=== PATIENT | female | born 1940 | race Caucasian/White ===

== ENCOUNTER 2018-10-26 14:22 | Emergency (ER) | payer MEDICARE ==
--- NOTE | 2018-10-26 14:44 | EDM.PDOC ---
ED HPI GENERAL MEDICAL PROBLEM - General Chief Complaint: General Stated Complaint: SOB Time Seen by Provider: 10/26/18 14:22 Source of Information: Reports: Patient, Family, RN History Limitations: Reports: No Limitations - History of Present Illness INITIAL COMMENTS - FREE TEXT/NARRATIVE: 78 yr female presents with weakness, shortness of breath, and some abdominal pain and some loose stools. States she does have regular checks for INR and was told to have her Hgb checked. She had knee surgery about 3 weeks ago. She did go to PT for oupt PT and now has been doing the exercises at home. Headache Pain Score (Numeric/FACES): 8 - Related Data Allergies Allergy/AdvReac Type Severity Reaction Status Date / Time codeine Allergy Nausea and Verified 10/26/18 15:00 Vomiting lisinopril Allergy Cough Verified 10/26/18 15:00 meperidine HCl [From Demerol] Allergy Swelling Verified 10/26/18 15:00 morphine Allergy Swelling Verified 10/26/18 15:00 narcotics Allergy Nausea and Uncoded 04/02/13 17:03 Vomiting Home Meds: Home Meds Bisacodyl [Dulcolax] 5 mg PO DAILY 01/12/15 [History] Calcium Carb & Citrate/Vit D3 [Citracal + D ER] 1 tab PO DAILY 01/12/15 [History ] Metoprolol Tartrate 12.5 mg PO DAILY 01/12/15 [History] Mirtazapine 7.5 tab PO BEDTIME 01/12/15 [History] Omeprazole [Prilosec] 20 mg PO DAILY 01/12/15 [History] Vitamin E 100 units PO DAILY 01/12/15 [History] amLODIPine Besylate [Amlodipine Besylate] 5 mg PO DAILY 01/12/15 [History] Acetaminophen/Caffeine [Excedrin Tension Headache] 1 tab PO Q6HR 06/05/16 [ History] Cyanocobalamin (Vitamin B12) [Vitamin B12] 1,200 mcg PO DAILY 06/05/16 [History] Escitalopram [Lexapro] 10 mg PO DAILY 06/05/16 [History] Losartan [Cozaar] 25 mg PO DAILY 06/05/16 [History] Past Medical History HEENT History: Reports: Head Other HEENT History: hx of benign positional vertigo in the past with releif with benadryl Neurological History: Reports: Headaches, Chronic, Vertigo Psychiatric History: Reports: None, Anxiety, Depression Oncologic (Cancer) History: Reports: Breast - Past Surgical History Other Musculoskeletal Surgeries/Procedures:: 1982: disectomy cervical spine ED ROS GENERAL - Review of Systems Review Of Systems: See Below Constitutional: Reports: No Symptoms HEENT: Reports: Glasses Respiratory: Reports: Shortness of Breath Cardiovascular: Reports: No Symptoms GI/Abdominal: Reports: Abdominal Pain, Diarrhea, Nausea. Denies: Hematochezia, Melena, Vomiting : Reports: No Symptoms Musculoskeletal: Reports: Other (some knee pain, but taking Tylenol and not too bad.) Skin: Reports: Bruising (right lower leg after surgery.) Neurological: Reports: No Symptoms Psychiatric: Reports: No Symptoms Hematologic/Lymphatic: Reports: No Symptoms ED EXAM, GENERAL - Physical Exam Exam: See Below Exam Limited By: No Limitations General Appearance: Alert, No Apparent Distress Nose: Normal Inspection Throat/Mouth: Normal Inspection Head: Atraumatic, Normocephalic Neck: Normal Inspection, Supple, Non-Tender Respiratory/Chest: Lungs Clear, Normal Breath Sounds Cardiovascular: Normal Peripheral Pulses, Regular Rate, Rhythm, No Edema Peripheral Pulses: 2+: Dorsalis Pedis (L), Dorsalis Pedis (R) GI/Abdominal: Normal Bowel Sounds, Soft, No Distention, Tender Back Exam: Normal Inspection, Full Range of Motion Psychiatric: Normal Affect, Normal Mood Skin Exam: Warm, Dry, Normal Color Course - Vital Signs Last Recorded V/S: Orthostatic Blood Pressure [ 73/44 Standing] Orthostatic Blood Pressure [ 90/55 Sitting] Orthostatic Blood Pressure [ 108/56 Supine] - Orders/Labs/Meds Orders: Active Orders 24 hr Category Date Time Status EKG Documentation Completion [RC] ASDIRECTED Care 10/26/18 15:37 Active Chest 2V [CR] Stat Exams 10/26/18 15:36 Taken EKG 12 Lead [EK] Routine Ther 10/26/18 15:37 Ordered Labs: Laboratory Tests 10/26/18 10/26/18 10/26/18 Range/Units 14:36 14:36 14:36 WBC 7.5 (4.0-11.0) K/uL RBC 3.48 L (3.80-5.80) M/uL Hgb 10.1 L (11.5-16.5) g/dL Hct 31.8 L (37.0-47.0) % MCV 91 (76-96) fL MCH 29.0 (27.0-32.0) pg MCHC 31.8 (31.0-35.0) g/dL RDW 13.8 (11.0-16.0) % Plt Count 520 H D (150-500) K/uL MPV 9.2 (6.0-10.0) fL Neut % (Auto) 56.8 (45.0-70.0) % Lymph % (Auto) 28.6 (20.0-40.0) % Wilkes % (Auto) 6.8 (3.0-10.0) % Eos % (Auto) 6.3 H (1.0-5.0) % Baso % (Auto) 1.5 H (0.0-0.5) % Neut # (Auto) 4.27 (2.00-7.50) K/uL Lymph # (Auto) 2.15 (1.50-4.00) K/uL Wilkes # (Auto) 0.51 (0.20-0.80) K/uL Eos # (Auto) 0.47 H (0.04-0.40) K/uL Baso # (Auto) 0.11 H (0.02-0.10) K/uL PT 18.0 H D (9.0-11.5) sec INR 1.9 D (1.0-3.5) Sodium 138 (136-145) mmol/L Potassium 4.6 (3.5-5.1) mmol/L Chloride 103 (98-107) mmol/L Carbon Dioxide 26.6 (21.0-32.0) mmol/L Anion Gap 13.0 (5.0-15.0) mmol/L BUN 25 D (8-26) mg/dL Creatinine 2.12 H D (0.55-1.02) mg/dL Est Cr Clr Drug Dosing TNP Estimated GFR (MDRD) 23 L (>60) MLS/MIN BUN/Creatinine Ratio 11.8 (6-25) Glucose 124 H D (74-100) mg/dL Lactic Acid (0.90-1.70) mmol/L Calcium 9.6 (8.5-10.1) mg/dL Total Bilirubin 0.2 (0.0-1.0) mg/dL AST 27 (15-37) U/L ALT 23 (12-78) U/L Alkaline Phosphatase 71 (46-116) U/L Total Protein 7.1 (6.4-8.2) g/dL Albumin 3.0 L (3.4-5.0) g/dL Globulin 4.1 (2.2-4.2) g/dL Albumin/Globulin Ratio 0.7 L (0.8-2.0) TSH, Ultra Sensitive (0.358-3.740) uIU/mL Urine Color Urine Appearance (CLEAR) Urine pH (5.0-8.0) Ur Specific Leggett (1.003-1.030) Urine Protein (NEGATIVE) mg/dL Urine Glucose (UA) (NEGATIVE) mg/dL Urine Ketones (NEGATIVE) mg/dL Urine Occult Blood (NEGATIVE) Urine Nitrite (NEGATIVE) Urine Bilirubin (NEGATIVE) Urine Urobilinogen (0.2-1.0) E.U./dL Ur Leukocyte Esterase (NEGATIVE) 10/26/18 10/26/18 10/26/18 Range/Units 14:37 14:37 14:37 WBC (4.0-11.0) K/uL RBC (3.80-5.80) M/uL Hgb (11.5-16.5) g/dL Hct (37.0-47.0) % MCV (76-96) fL MCH (27.0-32.0) pg MCHC (31.0-35.0) g/dL RDW (11.0-16.0) % Plt Count (150-500) K/uL MPV (6.0-10.0) fL Neut % (Auto) (45.0-70.0) % Lymph % (Auto) (20.0-40.0) % Wilkes % (Auto) (3.0-10.0) % Eos % (Auto) (1.0-5.0) % Baso % (Auto) (0.0-0.5) % Neut # (Auto) (2.00-7.50) K/uL Lymph # (Auto) (1.50-4.00) K/uL Wilkes # (Auto) (0.20-0.80) K/uL Eos # (Auto) (0.04-0.40) K/uL Baso # (Auto) (0.02-0.10) K/uL PT (9.0-11.5) sec INR (1.0-3.5) Sodium (136-145) mmol/L Potassium (3.5-5.1) mmol/L Chloride (98-107) mmol/L Carbon Dioxide (21.0-32.0) mmol/L Anion Gap (5.0-15.0) mmol/L BUN (8-26) mg/dL Creatinine (0.55-1.02) mg/dL Est Cr Clr Drug Dosing Estimated GFR (MDRD) (>60) MLS/MIN BUN/Creatinine Ratio (6-25) Glucose (74-100) mg/dL Lactic Acid 1.81 H (0.90-1.70) mmol/L Calcium (8.5-10.1) mg/dL Total Bilirubin (0.0-1.0) mg/dL AST (15-37) U/L ALT (12-78) U/L Alkaline Phosphatase (46-116) U/L Total Protein (6.4-8.2) g/dL Albumin (3.4-5.0) g/dL Globulin (2.2-4.2) g/dL Albumin/Globulin Ratio (0.8-2.0) TSH, Ultra Sensitive 3.086 D (0.358-3.740) uIU/mL Urine Color Yellow Urine Appearance Clear (CLEAR) Urine pH 8.5 H (5.0-8.0) Ur Specific Leggett 1.015 (1.003-1.030) Urine Protein Negative (NEGATIVE) mg/dL Urine Glucose (UA) Negative (NEGATIVE) mg/dL Urine Ketones Negative (NEGATIVE) mg/dL Urine Occult Blood Negative (NEGATIVE) Urine Nitrite Negative (NEGATIVE) Urine Bilirubin Negative (NEGATIVE) Urine Urobilinogen 0.2 (0.2-1.0) E.U./dL Ur Leukocyte Esterase Negative (NEGATIVE) Meds: Medications Discontinued Medications Generic Name Dose Route Start Last Admin Trade Name Freq PRN Reason Stop Dose Admin Acetaminophen Confirm 10/26/18 15:25 Tylenol Administered 10/26/18 15:26 Dose 325 mg .ROUTE .STK-MED ONE Sodium Chloride 500 mls @ 999 mls/hr 10/26/18 15:37 Normal Saline IV 10/26/18 16:07 .BOLUS ONE - Re-Assessments/Exams Free Text/Narrative Re-Assessment/Exam: 10/26/18 16:16 Reviewed lab results, Chest x-ray and EKG with pt and . Anemia noted, dehydration and renal insufficiency. Recommend to take Iron daily after best meal of the day and no calcium at same meal. IV fluids of 1 liter given and recommend to continue with increase water at home. Recheck H/H next week with INR. Orthostatid hypotension noted and bradycardia. Improved after fluids. May need her medication adjusted. She does have regular appointments with internal medicine. RTC or ER if symptoms persist or worsen. Departure - Departure Time of Disposition: 16:44 Disposition: Home, Self-Care 01 Condition: Good Clinical Impression: Dehydration, Anemia, Renal insufficiency, Orthostatic hypotension - Discharge Information *PRESCRIPTION DRUG MONITORING PROGRAM REVIEWED*: Not Applicable *COPY OF PRESCRIPTION DRUG MONITORING REPORT IN PATIENT DARION: Not Applicable ( Iron tablets daily with food) Instructions: Anemia Referrals: PCP,None [Primary Care Provider] - Forms: ED Department Discharge Additional Instructions: Follow up next week for Hemoglobin check. - My Orders Last 24 Hours: My Active Orders 10/26/18 15:36 Chest 2V [CR] Stat 10/26/18 15:37 EKG Documentation Completion [RC] ASDIRECTED EKG 12 Lead [EK] Routine - Assessment/Plan Last 24 Hours: My Active Orders 10/26/18 15:36 Chest 2V [CR] Stat 10/26/18 15:37 EKG Documentation Completion [RC] ASDIRECTED EKG 12 Lead [EK] Routine Plan: Anemia noted, dehydration and renal insufficiency. Recommend to take Iron daily after best meal of the day and no calcium at same meal. IV fluids of 1 liter given and recommend to continue with increase water at home. Recheck H/H next week with INR. Orthostatid hypotension noted and bradycardia. Improved after fluids. May need her medication adjusted. She does have regular appointments with internal medicine. RTC or ER if symptoms persist or worsen.
[2018-10-26] MEDS ORDERED: Acetaminophen 325 MG Tab ONE ×2 (15:00→15:25)
[2018-10-26] MEDS ORDERED: Sodium Chloride 0.9% 500 ML IV ONE (15:37)
--- NOTE | 2018-10-26 17:32 | CR ---
Date of Service: 10/26/18 Clinical Data: shortness of breath PA AND LATERAL CHEST: No priors. The heart size is normal. The aorta is ectatic. The lungs are hyperexpanded, but clear. No pneumothorax. No pleural effusions. There are surgical clips in the right axilla. 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 No other significant findings. [id number] [facility]
== END 2018-10-26 16:43 | disposition home or self-care (01) ==
LOC: LB.ED 14:22
DX: I95.1 Orthostatic hypotension (principal); N28.9 Disorder of kidney and ureter, unspecified; D64.9 Anemia, unspecified; E86.0 Dehydration; F41.9 Anxiety disorder, unspecified; F32.9 Major depressive disorder, single episode, unspecified; Z88.5 Allergy status to narcotic agent; Z88.8 Allergy status to other drugs, medicaments and biological substances; Z79.899 Other long term (current) drug therapy
CPT/HCPCS: 36415; 71046; 80053; 81003; 83605; 84443; 85025; 85610; 93005; 99285-25; A9270-GY; J7030

== ENCOUNTER 2021-04-30 08:34 | Day surgery (SDC) | payer MEDICARE ==
[~2021-04-30 08:34] MED LIST: Acetaminophen/HYDROcodone 325-5 MG Tab PO PRN; Lactated Ringers 1,000 ML IV SCH; ceFAZolin 1 GM in Sodium Chloride 0.9% 50 ML IV ONE
[2021-04-30] MEDS ORDERED: ceFAZolin 1 GM Vial ONE (10:00)
[2021-04-30] MEDS ORDERED: Midazolam 1 MG/ML 2 ML SDV ONE (10:00)
[2021-04-30] MEDS ORDERED: fentaNYL 100 MCG/2 ML SDV ONE (10:00)
[2021-04-30] MEDS ORDERED: Ondansetron 4 MG/2 ML SDV ONE (10:00)
[2021-04-30 11:12] VITALS: BP 130/68; PULSE 56
== END 2021-04-30 11:15 | disposition home or self-care (01) ==
LOC: LB.SDS 08:34
PROVIDERS: ATTEND Orthopaedic Surgery
DX: G56.01 Carpal tunnel syndrome, right upper limb (principal); I10 Essential (primary) hypertension; F32.A Depression, unspecified; Z20.822 Contact with and (suspected) exposure to COVID-19; Z79.899 Other long term (current) drug therapy
CPT/HCPCS: 64721; J0690; J2250; J2405; J3010; J7120

== ENCOUNTER 2021-07-14 12:42 | Emergency (ER) | payer MEDICARE ==
[2021-07-14] MEDS: fentaNYL 100 MCG/2 ML SDV IM ONE (13:10)
[2021-07-14] MEDS: hydrOXYzine HCl 50 MG/ML SDV IM ONE (13:20)
[2021-07-14] MEDS ORDERED: methylPREDNISolone Sodium Succinate 40 MG/1 ML SDV ONE (14:52)
[2021-07-14] MEDS: methylPREDNISolone Sodium Succinate 40 MG/1 ML SDV IM ONE (14:52)
== END 2021-07-14 14:55 | disposition home or self-care (01) ==
LOC: LB.ED 12:42
DX: S32.592A Other specified fracture of left pubis, initial encounter for closed fracture (principal); M54.42 Lumbago with sciatica, left side; M43.16 Spondylolisthesis, lumbar region; I10 Essential (primary) hypertension; Z88.5 Allergy status to narcotic agent; Z88.6 Allergy status to analgesic agent; Z88.8 Allergy status to other drugs, medicaments and biological substances; Z79.899 Other long term (current) drug therapy
CPT/HCPCS: 36415; 72192; 80048; 85025; 96372; 99284; J2920; J3010; J3410

== ENCOUNTER 2021-10-01 10:25 | Emergency (ER) | payer MEDICARE ==
[2021-10-01] MEDS: Sodium Chloride 0.9% 1,000 ML IV ONE ×2 (12:25→14:53)
[2021-10-01 14:30] VITALS: BP 114/77; PULSE 60
== END 2021-10-01 14:45 | disposition home or self-care (01) ==
LOC: LB.ED 10:25
DX: E86.0 Dehydration (principal); R00.1 Bradycardia, unspecified; I10 Essential (primary) hypertension; Z88.5 Allergy status to narcotic agent; Z88.6 Allergy status to analgesic agent; Z88.8 Allergy status to other drugs, medicaments and biological substances; Z79.899 Other long term (current) drug therapy
CPT/HCPCS: 36415; 74176; 80053; 81001; 83690; 85025; 93005; 96360; 96361; 99284; J7030; 93010; 99282

== ENCOUNTER 2023-03-04 14:09 | Emergency (ER) | payer MEDICARE ==
[2023-03-04 14:23] VITALS: BP 125/73; PULSE 68
[2023-03-04 16:57] LABS: APPEARANCE,URINE CLEAR (CLEAR); BILIRUBIN,URINE NEGATIVE (NEGATIVE); COLOR,URINE YELLOW; GLUCOSE,URINE NEGATIVE (NEGATIVE); KETONES,URINE NEGATIVE (NEGATIVE); LEUKOCYTE ESTERASE,URINE TRACE (NEGATIVE); NITRITE,URINE NEGATIVE (NEGATIVE); OCCULT BLOOD,URINE NEGATIVE (NEGATIVE); PH,URINE 5.5 (5.0-8.0); PROTEIN,URINE TRACE mg/dL (NEGATIVE); UROBILINOGEN,URINE 0.2 E.U./dL (0.2-1.0)
[2023-03-04 17:02] LABS: RBC,URINE 0-5 /HPF; SQUAMOUS EPITHELIAL CELLS,UR OCCASIONAL /HPF
[2023-03-04] MEDS ORDERED: Sulfamethoxazole/Trimethoprim 800-160 MG Tab PO ONE (17:06)
== END 2023-03-04 17:15 | disposition home or self-care (01) ==
LOC: LB.ED 14:09
DX: M25.531 Pain in right wrist (principal); Z88.5 Allergy status to narcotic agent; Z88.8 Allergy status to other drugs, medicaments and biological substances; Z79.899 Other long term (current) drug therapy
CPT/HCPCS: 73110-RT; 81001; 87086; 99283; A9270-GY

== ENCOUNTER 2023-04-08 11:22 | Emergency (ER) | payer MEDICARE ==
[2023-04-08] MEDS ORDERED: Naloxone 2 MG/2 ML Syringe IVPUSH PRN (11:23)
[2023-04-08] MEDS: HYDROmorphone 2 MG/ML Syringe IVPUSH ONE ×3 (11:27→17:12)
[2023-04-08] MEDS: Ondansetron 4 MG/2 ML SDV IVPUSH ONE ×2 (11:28→18:00)
[2023-04-08] MEDS ORDERED: Sodium Chloride 0.9% 10 ML Syringe FLUSH PRN (13:39)
[2023-04-08 15:43] VITALS: PULSE 61
[2023-04-08] MEDS ORDERED: Ondansetron 4 MG/2 ML SDV ONE (17:56)
[2023-04-08 18:15] VITALS: BP 134/70
== END 2023-04-08 18:25 ==
LOC: LB.ED 11:22
DX: S72.391A Other fracture of shaft of right femur, initial encounter for closed fracture (principal); I10 Essential (primary) hypertension; Z79.899 Other long term (current) drug therapy; Z88.5 Allergy status to narcotic agent; Z88.6 Allergy status to analgesic agent; Z88.8 Allergy status to other drugs, medicaments and biological substances; W01.0XXA Fall on same level from slipping, tripping and stumbling without subsequent striking against object, initial encounter
CPT/HCPCS: 51702; 73502-RT; 73700-RT; 96374; 96375; 96376; 99285; 99285-25; A0425; A0429; J1170; J2405

== ENCOUNTER 2023-07-15 08:10 | Emergency (ER) | payer MEDICARE ==
[2023-07-15 08:36] VITALS: PULSE 67
[2023-07-15 11:40] VITALS: BP 154/79
== END 2023-07-15 10:55 ==
LOC: LB.ED 08:10
DX: S00.03XA Contusion of scalp, initial encounter (principal); I10 Essential (primary) hypertension; Z88.4 Allergy status to anesthetic agent; Z88.5 Allergy status to narcotic agent; Z88.8 Allergy status to other drugs, medicaments and biological substances; Z88.6 Allergy status to analgesic agent; Z86.19 Personal history of other infectious and parasitic diseases; Z79.899 Other long term (current) drug therapy; W18.12XA Fall from or off toilet with subsequent striking against object, initial encounter; Y93.89 Activity, other specified
CPT/HCPCS: 70450; 99283

== ENCOUNTER 2023-07-17 19:25 | Emergency (ER) | payer MEDICARE ==
[2023-07-17] MEDS: Ondansetron 4 MG/2 ML SDV IVPUSH ONE (19:48)
[2023-07-17] MEDS: HYDROmorphone 2 MG/ML Syringe IVPUSH ONE (19:50)
[2023-07-17] MEDS: fentaNYL 25 MCG/HR Transdermal Patch TRDERM SCH (21:30)
[2023-07-17 22:39] VITALS: BP 109/63; PULSE 62
== END 2023-07-17 22:10 ==
LOC: LB.ED 19:25
DX: M54.50 Low back pain, unspecified (principal); G89.29 Other chronic pain; I10 Essential (primary) hypertension; Z79.899 Other long term (current) drug therapy; Z79.01 Long term (current) use of anticoagulants; Z88.5 Allergy status to narcotic agent; Z88.6 Allergy status to analgesic agent; Z88.8 Allergy status to other drugs, medicaments and biological substances
CPT/HCPCS: 72100; 73521; 96374; 96375; 99283; A9270; J1170; J2405

== ENCOUNTER 2023-07-20 11:11 | Emergency (ER) | payer MEDICARE ==
[2023-07-20 12:00] VITALS: BP 102/64; PULSE 71
[2023-07-20] MEDS ORDERED: fentaNYL 25 MCG/HR Transdermal Patch ONE (12:00)
== END 2023-07-20 13:50 ==
LOC: LB.ED 11:11
DX: S32.10XD Unspecified fracture of sacrum, subsequent encounter for fracture with routine healing (principal); I10 Essential (primary) hypertension; Z88.8 Allergy status to other drugs, medicaments and biological substances; Z88.5 Allergy status to narcotic agent; Z88.4 Allergy status to anesthetic agent; Z88.6 Allergy status to analgesic agent; Z79.01 Long term (current) use of anticoagulants; Z79.899 Other long term (current) drug therapy; Z86.19 Personal history of other infectious and parasitic diseases; W19.XXXD Unspecified fall, subsequent encounter
CPT/HCPCS: 72131; 72192; 99283; A9270-GY

== ENCOUNTER 2023-07-22 14:18 | Inpatient (IN) | payer MEDICARE ==
[2023-07-22 15:22] LABS: APPEARANCE,URINE CLOUDY (CLEAR); BILIRUBIN,URINE NEGATIVE (NEGATIVE); COLOR,URINE YELLOW; GLUCOSE,URINE NEGATIVE (NEGATIVE); KETONES,URINE NEGATIVE (NEGATIVE); LEUKOCYTE ESTERASE,URINE SMALL (NEGATIVE); NITRITE,URINE NEGATIVE (NEGATIVE); OCCULT BLOOD,URINE TRACE-INTACT (NEGATIVE); PROTEIN,URINE NEGATIVE (NEGATIVE); UROBILINOGEN,URINE 0.2 E.U./dL (0.2-1.0)
[2023-07-22 15:26] LABS: RBC,URINE 0-5 /HPF; SQUAMOUS EPITHELIAL CELLS,UR FEW /HPF; WBC,URINE 30-40 /HPF
[2023-07-22] MEDS: Naloxone 2 MG/2 ML Syringe SUBCUT PRN (16:10)
[2023-07-22] MEDS: LORazepam 2 MG/ML SDV IM ONE (16:11)
[2023-07-22] MEDS ORDERED: Aluminum Hydroxide/Magnesium Hydroxide/Simethicone Susp 30 ML Cup PO PRN (16:14)
[2023-07-22] MEDS ORDERED: Non-Formulary Medication 1 Each (Sumatriptan Succinate [Imitrex] 100 MG Tablet) PO PRN (16:14)
[2023-07-22] MEDS: LORazepam 2 MG/ML SDV ONE (16:18)
[2023-07-22] MEDS: Naloxone 2 MG/2 ML Syringe ONE (16:18)
[2023-07-22] MEDS ORDERED: SUMAtriptan 25 MG Tab PO PRN (17:00)
[2023-07-22] MEDS: Apixaban 2.5 MG Tab PO SCH (19:24)
[2023-07-22] MEDS: Acetaminophen 500 MG Tab PO PRN (19:24)
[2023-07-22] MEDS: Escitalopram 20 MG Tab PO SCH (19:24)
[2023-07-22] MEDS: LORazepam 0.5 MG Tab PO SCH (19:28)
[2023-07-23] MEDS: Lidocaine 5% 700 MG Patch TOP SCH (07:38)
[2023-07-23] MEDS: Calcium Carbonate/Vitamin D3 1500 MG-400 Units Tab PO SCH (07:38)
[2023-07-23] MEDS: Hydrochlorothiazide 25 MG Tab PO SCH (07:38)
[2023-07-23] MEDS: Polyethylene Glycol 3350 Powder 17 GM Packet PO SCH (07:39)
[2023-07-23] MEDS: Omeprazole 20 MG Cap.CR PO SCH (07:39)
[2023-07-23] MEDS: Cyanocobalamin (Vitamin B12) 1,000 MCG Tab PO SCH (07:39)
[2023-07-23] MEDS: buPROPion 300 MG Tab.ER PO SCH (07:39)
[2023-07-23] MEDS: Metoprolol Succinate 25 MG Tab.ER PO SCH (07:39)
[2023-07-23] MEDS ORDERED: VIT D3 PO SCH (08:00)
[2023-07-23] MEDS ORDERED: [UNRECOGNIZED DRUG - OTHER] PO SCH (08:00)
[2023-07-23] MEDS ORDERED: LIDOCAINE TP SCH (08:00)
[2023-07-23] MEDS ORDERED: CALCIUM CARB CITRATE PO SCH (08:00)
[2023-07-23] MEDS ORDERED: Lidocaine 5% 700 MG Patch TRDERM SCH (08:00)
[2023-07-23 08:36] LABS: BASOPHILS ABSOLUTE AUTO 0.04 K/uL (0.02-0.10); BASOPHILS PERCENT AUTO 0.5 % (0.0-0.5); EOSINOPHILS ABSOLUTE AUTO 0.08 K/uL (0.04-0.40); HEMATOCRIT 32.2 % (37.0-47.0); HEMOGLOBIN 10.1 g/dL (11.5-16.5); LYMPHOCYTES ABSOLUTE AUTO 1.38 K/uL (1.50-4.00); LYMPHOCYTES PERCENT AUTO 17.5 % (20.0-40.0); MEAN CORPUSCULAR HEMOGLOBIN 28.6 pg (27.0-32.0); MEAN CORPUSCULAR HGB CONC 31.4 g/dL (31.0-35.0); MEAN CORPUSCULAR VOLUME 91 fL (76-96); MEAN PLATELET VOLUME 9.2 fL (6.0-10.0); MONOCYTES ABSOLUTE AUTO 0.57 K/uL (0.20-0.80); MONOCYTES PERCENT AUTO 7.2 % (3.0-10.0); NEUTROPHILS ABSOLUTE AUTO 5.81 K/uL (2.00-7.50); NEUTROPHILS PERCENT AUTO 73.8 % (45.0-70.0); PLATELET COUNT,PLT 335 K/uL (150-500); RED BLOOD CELL COUNT 3.53 M/uL (3.80-5.80); RED CELL DISTRIBUTION WIDTH 14.5 % (11.0-16.0); WHITE BLOOD CELL COUNT,WBC 7.9 K/uL (4.0-11.0)
[2023-07-23 08:49] LABS: A/G RATIO 0.7 (0.8-2.0); ALANINE AMINOTRANSFERASE,ALT 25 U/L (12-78); ALBUMIN 2.9 g/dL (3.4-5.0); ALKALINE PHOSPHATASE 122 U/L (46-116); ANION GAP 19.6 mmol/L (5.0-15.0); ASPARTATE AMNIOTRANSFERASE,AST 39 U/L (15-37); BILIRUBIN TOTAL 0.6 mg/dL (0.0-1.0); BLOOD UREA NITROGEN,BUN 34 mg/dL (8-26); BUN/CREATININE RATIO 22.8 (6-25); CALCIUM 9.2 mg/dL (8.5-10.1); CARBON DIOXIDE,CO2 22.1 mmol/L (21.0-32.0); CHLORIDE,CL 100 mmol/L (98-107); CREATININE 1.49 mg/dL (0.55-1.02); ESTIMATED GFR 35 mL/min (>60); GLUCOSE RANDOM 70 mg/dL (74-100); POTASSIUM,K 3.7 mmol/L (3.5-5.1); PROTEIN TOTAL,TP 6.8 g/dL (6.4-8.2); SODIUM,NA 138 mmol/L (136-145)
[2023-07-23] MEDS: Sodium Chloride 0.9% 1,000 ML IV ONE (09:34)
[2023-07-23] MEDS: Acetaminophen 500 MG Tab PO ONE (10:53)
[2023-07-23] MEDS: Acetaminophen 500 MG Tab PO SCH (14:09)
[2023-07-23] MEDS ORDERED: LORazepam 2 MG/ML SDV IM PRN (16:01)
[2023-07-23] MEDS: LORazepam 2 MG/ML SDV IVPUSH PRN (16:28)
[2023-07-24] MEDS: Metoprolol Tartrate 25 MG Tab PO SCH ×2 (09:24→19:28)
[2023-07-25] MEDS: Metoprolol Tartrate 50 MG Tab PO SCH (07:34)
[2023-07-25] MEDS: traMADol 50 MG Tab PO SCH (07:35)
[2023-07-25] MEDS: amLODIPine 5 MG Tab PO ONE (07:35)
[2023-07-25] MEDS: Sodium Chloride 0.9% 1,000 ML IV SCH (09:48)
[2023-07-25 10:03] LABS: A/G RATIO 0.7 (0.8-2.0); ALANINE AMINOTRANSFERASE,ALT 15 U/L (12-78); ALBUMIN 2.8 g/dL (3.4-5.0); ALKALINE PHOSPHATASE 126 U/L (46-116); ANION GAP 14.3 mmol/L (5.0-15.0); ASPARTATE AMNIOTRANSFERASE,AST 23 U/L (15-37); BILIRUBIN TOTAL 0.4 mg/dL (0.0-1.0); BLOOD UREA NITROGEN,BUN 25 mg/dL (8-26); BUN/CREATININE RATIO 18.9 (6-25); CALCIUM 9.2 mg/dL (8.5-10.1); CARBON DIOXIDE,CO2 24.9 mmol/L (21.0-32.0); CHLORIDE,CL 104 mmol/L (98-107); CREATININE 1.32 mg/dL (0.55-1.02); ESTIMATED GFR 41 mL/min (>60); GLUCOSE RANDOM 82 mg/dL (74-100); POTASSIUM,K 4.2 mmol/L (3.5-5.1); PROTEIN TOTAL,TP 6.8 g/dL (6.4-8.2); SODIUM,NA 139 mmol/L (136-145)
[2023-07-25] MEDS: Ondansetron 4 MG Tab.DIS PO PRN (10:34)
[2023-07-25] MEDS ORDERED: Non-Formulary Medication 1 Each SUBCUT SCH (11:15)
[2023-07-25] MEDS: GALCANEZUMAB 120 MG/ML SQ SCH (11:39)
[2023-07-25] MEDS: Acetaminophen 500 MG Tab ONE (16:24)
[2023-07-26 05:36] LABS: APPEARANCE,URINE CLEAR (CLEAR); BILIRUBIN,URINE NEGATIVE (NEGATIVE); COLOR,URINE YELLOW; GLUCOSE,URINE NEGATIVE (NEGATIVE); KETONES,URINE NEGATIVE (NEGATIVE); LEUKOCYTE ESTERASE,URINE SMALL (NEGATIVE); NITRITE,URINE NEGATIVE (NEGATIVE); OCCULT BLOOD,URINE NEGATIVE (NEGATIVE); PROTEIN,URINE NEGATIVE (NEGATIVE); UROBILINOGEN,URINE 0.2 E.U./dL (0.2-1.0)
[2023-07-26 05:39] LABS: BACTERIA,URINE FEW /HPF; RBC,URINE NOT SEEN /HPF
[2023-07-26] MEDS: amLODIPine 5 MG Tab PO SCH (08:15)
[2023-07-26] MEDS: LORazepam 2 MG/ML SDV IVPUSH PRN (15:21)
[2023-07-26] MEDS: ALPRAZolam 0.25 MG Tab PO PRN (18:38)
[2023-07-27] MEDS: amLODIPine 5 MG Tab PO ONE (11:08)
[2023-07-27] MEDS: amLODIPine 5 MG Tab ONE (11:08)
[2023-07-27] MEDS: Ibuprofen 400 MG Tab PO PRN (11:09)
[2023-07-27] MEDS: Acetaminophen/HYDROcodone 325-5 MG Tab PO PRN (12:03)
[2023-07-27] MEDS: Acetaminophen/HYDROcodone 325-5 MG Tab ONE (12:04)
[2023-07-28] MEDS: amLODIPine 5 MG Tab PO SCH (07:40)
[2023-07-28] MEDS: Acetaminophen/HYDROcodone 325-5 MG Tab PO PRN (12:45)
[2023-07-28] MEDS: Trolamine Salicylate/Aloe Vera 10% Crm 85 GM Tube TOP PRN (15:43)
[2023-07-28] MEDS: Ondansetron 4 MG/2 ML SDV IVPUSH ONE (16:55)
[2023-07-28] MEDS: HYDROmorphone 2 MG/ML Syringe IVPUSH ONE (17:01)
[2023-07-29] MEDS: HYDROmorphone 2 MG/ML Syringe IVPUSH ONE (05:53)
[2023-07-29] MEDS: HYDROmorphone 2 MG/ML Syringe ONE (07:35)
[2023-07-29 08:30] LABS: A/G RATIO 0.7 (0.8-2.0); ALANINE AMINOTRANSFERASE,ALT 11 U/L (12-78); ALBUMIN 2.3 g/dL (3.4-5.0); ALKALINE PHOSPHATASE 140 U/L (46-116); ANION GAP 13.6 mmol/L (5.0-15.0); ASPARTATE AMNIOTRANSFERASE,AST 15 U/L (15-37); BILIRUBIN TOTAL 0.3 mg/dL (0.0-1.0); CALCIUM 8.3 mg/dL (8.5-10.1); CARBON DIOXIDE,CO2 22.9 mmol/L (21.0-32.0); CHLORIDE,CL 108 mmol/L (98-107); CREATININE 1.21 mg/dL (0.55-1.02); ESTIMATED GFR 45 mL/min (>60); GLUCOSE RANDOM 87 mg/dL (74-100); POTASSIUM,K 3.5 mmol/L (3.5-5.1); PROTEIN TOTAL,TP 5.7 g/dL (6.4-8.2); SODIUM,NA 141 mmol/L (136-145)
[2023-07-29 09:56] LABS: BLOOD UREA NITROGEN,BUN 17 mg/dL (8-26)
[2023-07-29 11:03] LABS: BASOPHILS ABSOLUTE AUTO 0.03 K/uL (0.02-0.10); BASOPHILS PERCENT AUTO 0.4 % (0.0-0.5); EOSINOPHILS PERCENT AUTO 1.4 % (1.0-5.0); HEMATOCRIT 31.2 % (37.0-47.0); LYMPHOCYTES PERCENT AUTO 24.4 % (20.0-40.0); MEAN CORPUSCULAR HGB CONC 32.1 g/dL (31.0-35.0); MEAN CORPUSCULAR VOLUME 90 fL (76-96); MEAN PLATELET VOLUME 9.1 fL (6.0-10.0); MONOCYTES ABSOLUTE AUTO 0.52 K/uL (0.20-0.80); MONOCYTES PERCENT AUTO 7.5 % (3.0-10.0); NEUTROPHILS ABSOLUTE AUTO 4.61 K/uL (2.00-7.50); NEUTROPHILS PERCENT AUTO 66.3 % (45.0-70.0); PLATELET COUNT,PLT 333 K/uL (150-500); RED BLOOD CELL COUNT 3.45 M/uL (3.80-5.80); RED CELL DISTRIBUTION WIDTH 14.4 % (11.0-16.0)
[2023-07-29] MEDS ORDERED: Naloxone 2 MG/2 ML Syringe IVPUSH PRN (11:05)
[2023-07-29] MEDS: HYDROmorphone 2 MG/ML Syringe IVPUSH PRN (11:36)
[2023-07-30 08:46] LABS: BASOPHILS ABSOLUTE AUTO 0.03 K/uL (0.02-0.10); BASOPHILS PERCENT AUTO 0.4 % (0.0-0.5); EOSINOPHILS ABSOLUTE AUTO 0.14 K/uL (0.04-0.40); EOSINOPHILS PERCENT AUTO 1.8 % (1.0-5.0); HEMATOCRIT 30.1 % (37.0-47.0); HEMOGLOBIN 9.5 g/dL (11.5-16.5); LYMPHOCYTES ABSOLUTE AUTO 1.92 K/uL (1.50-4.00); LYMPHOCYTES PERCENT AUTO 24.2 % (20.0-40.0); MEAN CORPUSCULAR HGB CONC 31.6 g/dL (31.0-35.0); MEAN CORPUSCULAR VOLUME 92 fL (76-96); MONOCYTES ABSOLUTE AUTO 0.78 K/uL (0.20-0.80); MONOCYTES PERCENT AUTO 9.8 % (3.0-10.0); NEUTROPHILS ABSOLUTE AUTO 5.06 K/uL (2.00-7.50); NEUTROPHILS PERCENT AUTO 63.8 % (45.0-70.0); PLATELET COUNT,PLT 376 K/uL (150-500); RED BLOOD CELL COUNT 3.28 M/uL (3.80-5.80); RED CELL DISTRIBUTION WIDTH 14.8 % (11.0-16.0); WHITE BLOOD CELL COUNT,WBC 7.9 K/uL (4.0-11.0)
[2023-07-31 09:37] LABS: BASOPHILS ABSOLUTE AUTO 0.04 K/uL (0.02-0.10); BASOPHILS PERCENT AUTO 0.6 % (0.0-0.5); EOSINOPHILS ABSOLUTE AUTO 0.14 K/uL (0.04-0.40); EOSINOPHILS PERCENT AUTO 2.1 % (1.0-5.0); HEMATOCRIT 33.1 % (37.0-47.0); HEMOGLOBIN 10.4 g/dL (11.5-16.5); LYMPHOCYTES ABSOLUTE AUTO 1.58 K/uL (1.50-4.00); LYMPHOCYTES PERCENT AUTO 23.2 % (20.0-40.0); MEAN CORPUSCULAR HEMOGLOBIN 28.7 pg (27.0-32.0); MEAN CORPUSCULAR HGB CONC 31.4 g/dL (31.0-35.0); MEAN CORPUSCULAR VOLUME 91 fL (76-96); MEAN PLATELET VOLUME 8.8 fL (6.0-10.0); MONOCYTES ABSOLUTE AUTO 0.49 K/uL (0.20-0.80); MONOCYTES PERCENT AUTO 7.2 % (3.0-10.0); NEUTROPHILS ABSOLUTE AUTO 4.56 K/uL (2.00-7.50); NEUTROPHILS PERCENT AUTO 66.9 % (45.0-70.0); PLATELET COUNT,PLT 356 K/uL (150-500); RED BLOOD CELL COUNT 3.62 M/uL (3.80-5.80); RED CELL DISTRIBUTION WIDTH 14.9 % (11.0-16.0); WHITE BLOOD CELL COUNT,WBC 6.8 K/uL (4.0-11.0)
[2023-07-31 09:55] LABS: A/G RATIO 0.6 (0.8-2.0); ALANINE AMINOTRANSFERASE,ALT 13 U/L (12-78); ALBUMIN 2.2 g/dL (3.4-5.0); ALKALINE PHOSPHATASE 159 U/L (46-116); ASPARTATE AMNIOTRANSFERASE,AST 15 U/L (15-37); BILIRUBIN TOTAL 0.3 mg/dL (0.0-1.0); BLOOD UREA NITROGEN,BUN 15 mg/dL (8-26); BUN/CREATININE RATIO 12.5 (6-25); CALCIUM 8.3 mg/dL (8.5-10.1); CARBON DIOXIDE,CO2 22.7 mmol/L (21.0-32.0); CHLORIDE,CL 108 mmol/L (98-107); ESTIMATED GFR 46 mL/min (>60); GLUCOSE RANDOM 107 mg/dL (74-100); POTASSIUM,K 3.7 mmol/L (3.5-5.1); PROTEIN TOTAL,TP 5.8 g/dL (6.4-8.2); SODIUM,NA 140 mmol/L (136-145)
[2023-07-31] MEDS: Bisacodyl 10 MG Supp RECTAL PRN (11:19)
[2023-07-31] MEDS: ALPRAZolam 0.25 MG Tab ONE (21:58)
[2023-08-01 08:32] LABS: HEMOGLOBIN 10.6 g/dL (11.5-16.5); MEAN CORPUSCULAR HGB CONC 32.1 g/dL (31.0-35.0); MEAN PLATELET VOLUME 9.1 fL (6.0-10.0); RED BLOOD CELL COUNT 3.66 M/uL (3.80-5.80); RED CELL DISTRIBUTION WIDTH 14.7 % (11.0-16.0); WHITE BLOOD CELL COUNT,WBC 6.4 K/uL (4.0-11.0)
[2023-08-01 08:47] LABS: A/G RATIO 0.6 (0.8-2.0); ALANINE AMINOTRANSFERASE,ALT 8 U/L (12-78); ALBUMIN 2.4 g/dL (3.4-5.0); ALKALINE PHOSPHATASE 179 U/L (46-116); ANION GAP 12.7 mmol/L (5.0-15.0); ASPARTATE AMNIOTRANSFERASE,AST 15 U/L (15-37); BILIRUBIN TOTAL 0.3 mg/dL (0.0-1.0); BLOOD UREA NITROGEN,BUN 12 mg/dL (8-26); BUN/CREATININE RATIO 11.4 (6-25); CALCIUM 8.5 mg/dL (8.5-10.1); CARBON DIOXIDE,CO2 19.8 mmol/L (21.0-32.0); CHLORIDE,CL 107 mmol/L (98-107); CREATININE 1.05 mg/dL (0.55-1.02); ESTIMATED GFR 54 mL/min (>60); GLUCOSE RANDOM 87 mg/dL (74-100); POTASSIUM,K 3.5 mmol/L (3.5-5.1); PROTEIN TOTAL,TP 6.3 g/dL (6.4-8.2); SODIUM,NA 136 mmol/L (136-145)
[2023-08-01] MEDS: Nitrofurantoin Macrocrystal 50 MG Cap PO SCH (11:18)
[2023-08-02 11:44] LABS: BASOPHILS ABSOLUTE AUTO 0.04 K/uL (0.02-0.10); BASOPHILS PERCENT AUTO 0.5 % (0.0-0.5); EOSINOPHILS ABSOLUTE AUTO 0.14 K/uL (0.04-0.40); EOSINOPHILS PERCENT AUTO 1.9 % (1.0-5.0); HEMATOCRIT 34.5 % (37.0-47.0); LYMPHOCYTES ABSOLUTE AUTO 1.77 K/uL (1.50-4.00); LYMPHOCYTES PERCENT AUTO 23.9 % (20.0-40.0); MEAN CORPUSCULAR HEMOGLOBIN 28.6 pg (27.0-32.0); MEAN CORPUSCULAR HGB CONC 31.9 g/dL (31.0-35.0); MEAN CORPUSCULAR VOLUME 90 fL (76-96); MEAN PLATELET VOLUME 8.5 fL (6.0-10.0); MONOCYTES ABSOLUTE AUTO 0.59 K/uL (0.20-0.80); NEUTROPHILS ABSOLUTE AUTO 4.86 K/uL (2.00-7.50); NEUTROPHILS PERCENT AUTO 65.7 % (45.0-70.0); PLATELET COUNT,PLT 441 K/uL (150-500); RED BLOOD CELL COUNT 3.85 M/uL (3.80-5.80); RED CELL DISTRIBUTION WIDTH 14.8 % (11.0-16.0); WHITE BLOOD CELL COUNT,WBC 7.4 K/uL (4.0-11.0)
[2023-08-02 11:59] LABS: A/G RATIO 0.7 (0.8-2.0); ALANINE AMINOTRANSFERASE,ALT 13 U/L (12-78); ALBUMIN 2.5 g/dL (3.4-5.0); ALKALINE PHOSPHATASE 192 U/L (46-116); ANION GAP 12.4 mmol/L (5.0-15.0); ASPARTATE AMNIOTRANSFERASE,AST 18 U/L (15-37); BILIRUBIN TOTAL 0.2 mg/dL (0.0-1.0); BLOOD UREA NITROGEN,BUN 13 mg/dL (8-26); BUN/CREATININE RATIO 10.9 (6-25); CALCIUM 8.5 mg/dL (8.5-10.1); CARBON DIOXIDE,CO2 22.1 mmol/L (21.0-32.0); CHLORIDE,CL 107 mmol/L (98-107); CREATININE 1.19 mg/dL (0.55-1.02); ESTIMATED GFR 46 mL/min (>60); GLUCOSE RANDOM 130 mg/dL (74-100); POTASSIUM,K 3.5 mmol/L (3.5-5.1); PROTEIN TOTAL,TP 6.3 g/dL (6.4-8.2); SODIUM,NA 138 mmol/L (136-145)
[2023-08-03] MEDS: OLANZapine 5 MG Tab PO ONE (23:07)
[2023-08-03] MEDS: OLANZapine 5 MG Tab ONE (23:11)
[2023-08-06] MEDS ORDERED: Lidocaine 5% 700 MG Patch TOP PRN (09:29)
[2023-08-06 10:04] VITALS: BP 138/77; PULSE 88
== END 2023-08-06 11:25 | DRG 880 ==
LOC: LB.ED 14:18 → LB.MS 16:12
PROVIDERS: ADMIT Physician Assistant; ATTEND Physician Assistant
DX: F90.9 Attention-deficit hyperactivity disorder, unspecified type (principal); F19.921 Other psychoactive substance use, unspecified with intoxication with delirium; F05 Delirium due to known physiological condition; R64 Cachexia; T39.95XA Adverse effect of unspecified nonopioid analgesic, antipyretic and antirheumatic, initial encounter; Z88.6 Allergy status to analgesic agent; H54.7 Unspecified visual loss; I10 Essential (primary) hypertension; K59.09 Other constipation; K21.9 Gastro-esophageal reflux disease without esophagitis; G43.909 Migraine, unspecified, not intractable, without status migrainosus; F41.9 Anxiety disorder, unspecified; F32.A Depression, unspecified; Z96.649 Presence of unspecified artificial hip joint; S32.10XD Unspecified fracture of sacrum, subsequent encounter for fracture with routine healing; R45.1 Restlessness and agitation; Z66 Do not resuscitate; Z88.5 Allergy status to narcotic agent; Z88.8 Allergy status to other drugs, medicaments and biological substances; Z79.899 Other long term (current) drug therapy; Z79.01 Long term (current) use of anticoagulants; Z87.81 Personal history of (healed) traumatic fracture; Z85.3 Personal history of malignant neoplasm of breast; X58.XXXD Exposure to other specified factors, subsequent encounter
CPT/HCPCS: 36415; 70450; 74018; 74176; 80053; 81001; 84443; 85025; 85027; 87086; 96372; 97162-GP; 97530-GP; 99285; A9270-GY; C1758; J1170; J2060; J2310; J2405; J7030; Q0162

== ENCOUNTER 2023-08-26 20:45 | Emergency (ER) | payer MEDICARE ==
[2023-08-26] MEDS: Lidocaine 1% with EPINEPHrine 1:100,000 20 ML MDV INJECT ONE (22:00)
[2023-08-26] MEDS: Diphtheria,Pertussis(Acell),Tetanus Vaccine 0.5 ML Syringe IM ONE (22:25)
[2023-08-26 22:53] VITALS: BP 112/67; PULSE 53
== END 2023-08-26 22:45 ==
LOC: LB.ED 20:45
DX: S01.112A Laceration without foreign body of left eyelid and periocular area, initial encounter (principal); S51.812A Laceration without foreign body of left forearm, initial encounter; Z23 Encounter for immunization; W06.XXXA Fall from bed, initial encounter; Y92.129 Unspecified place in nursing home as the place of occurrence of the external cause
CPT/HCPCS: 12001; 12011; 70450; 90471; 90715; 99283; 99284-25

== ENCOUNTER 2024-01-13 08:54 | Emergency (ER) | payer MEDICAID ==
[2024-01-13 11:17] VITALS: BP 133/78; PULSE 50
== END 2024-01-13 10:07 ==
LOC: LB.ED 08:54
DX: M54.50 Low back pain, unspecified (principal); I10 Essential (primary) hypertension; K21.9 Gastro-esophageal reflux disease without esophagitis; Z79.899 Other long term (current) drug therapy; Z79.891 Long term (current) use of opiate analgesic; Z88.8 Allergy status to other drugs, medicaments and biological substances; Z88.5 Allergy status to narcotic agent; W19.XXXA Unspecified fall, initial encounter
CPT/HCPCS: 72100; 73562-LT; 99283

== ENCOUNTER 2024-05-11 20:24 | Observation (INO) | payer MEDICAID, MEDICARE ==
[2024-05-11] MEDS: Ondansetron 4 MG Tab.DIS PO ONE (20:32)
[2024-05-11] MEDS: fentaNYL 100 MCG/2 ML SDV IVPUSH ONE (20:34)
[2024-05-11] MEDS ORDERED: HYDROCODONE PO PRN ×2 (21:37→21:50)
[2024-05-11] MEDS ORDERED: ACETAMINOPHEN PO PRN ×2 (21:37→21:50)
[2024-05-11] MEDS ORDERED: [UNRECOGNIZED DRUG - OTHER] PO PRN ×2 (21:37→21:50)
[2024-05-11] MEDS ORDERED: Ondansetron 4 MG Tab.DIS PO PRN (21:37)
[2024-05-11] MEDS ORDERED: Docusate Sodium 100 MG Cap PO SCH (21:45)
[2024-05-11] MEDS ORDERED: ALPRAZolam 0.25 MG Tab PO PRN (23:56)
[2024-05-12] MEDS: fentaNYL 100 MCG/2 ML SDV IVPUSH PRN (00:08)
[2024-05-12] MEDS: Calcium Carbonate/Vitamin D3 1500 MG-400 Units Tab PO SCH (08:27)
[2024-05-12] MEDS: APIXABAN 2.5 MG PO SCH (08:32)
[2024-05-12] MEDS: HYDROCHLOROTHIAZIDE 25 MG PO SCH (08:32)
[2024-05-12] MEDS: FUROSEMIDE 40 MG PO SCH (08:32)
[2024-05-12] MEDS: METOPROLOL TARTRATE 50 MG PO SCH (08:35)
[2024-05-12] MEDS: OMEPRAZOLE 20 MG PO SCH (08:35)
[2024-05-12] MEDS: Polyethylene Glycol 3350 Powder 17 GM Packet PO SCH (08:35)
[2024-05-12] MEDS ORDERED: Ketamine 200 MG/20 ML MDV IV SCH (09:45)
[2024-05-12] MEDS ORDERED: SODIUM CHLORIDE 0.9% IV ONE (10:00)
[2024-05-12] MEDS ORDERED: KETAMINE IV ONE (10:00)
[2024-05-12] MEDS: ALPRAZolam 0.25 MG Tab PO SCH (10:08)
[2024-05-12] MEDS: KETAMINE IV ONE (10:30)
[2024-05-12] MEDS: SODIUM CHLORIDE 0.9% IV ONE (10:30)
[2024-05-12] MEDS: LIDOCAINE TP SCH (10:39)
[2024-05-12] MEDS: fentaNYL 50 MCG/HR Transdermal Patch TRDERM SCH (13:57)
[2024-05-12] MEDS: OLANZAPINE 2.5 MG PO SCH (13:58)
[2024-05-12] MEDS: fentaNYL 50 MCG/HR Transdermal Patch ONE (14:03)
[2024-05-12] MEDS: CETIRIZINE 10 MG PO SCH (15:58)
[2024-05-12] MEDS: Melatonin 3 MG Tab PO SCH (19:39)
[2024-05-12] MEDS: LORazepam 2 MG/ML SDV IVPUSH ONE (19:45)
[2024-05-12] MEDS: Diazepam 5 MG Tab PO ONE (21:22)
[2024-05-12] MEDS: Haloperidol Lactate 5 MG/ML SDV IVPUSH ONE (23:13)
[2024-05-12 23:34] LABS: APPEARANCE,URINE CLEAR (CLEAR); COLOR,URINE YELLOW; GLUCOSE,URINE NEGATIVE (NEGATIVE); PH,URINE 6.5 (5.0-8.0); PROTEIN,URINE NEGATIVE (NEGATIVE)
[2024-05-12 23:35] LABS: BILIRUBIN,URINE NEGATIVE (NEGATIVE); KETONES,URINE NEGATIVE (NEGATIVE); LEUKOCYTE ESTERASE,URINE NEGATIVE (NEGATIVE); NITRITE,URINE NEGATIVE (NEGATIVE); OCCULT BLOOD,URINE NEGATIVE (NEGATIVE); UROBILINOGEN,URINE 0.2 E.U./dL (0.2-1.0)
[2024-05-13] MEDS: Docusate Sodium 100 MG Cap PO SCH (07:27)
[2024-05-13 08:59] LABS: HEMATOCRIT 32.3 % (37.0-47.0); HEMOGLOBIN 10.4 g/dL (11.5-16.5); MEAN CORPUSCULAR HEMOGLOBIN 28.6 pg (27.0-32.0); MEAN CORPUSCULAR HGB CONC 32.2 g/dL (31.0-35.0); MEAN PLATELET VOLUME 9.1 fL (6.0-10.0); RED BLOOD CELL COUNT 3.64 M/uL (3.80-5.80); WHITE BLOOD CELL COUNT,WBC 9.3 K/uL (4.0-11.0)
[2024-05-13 09:16] LABS: ANION GAP 15.2 mmol/L (5.0-15.0); BUN/CREATININE RATIO 20.2 (6-25); CALCIUM 9.9 mg/dL (8.5-10.1); CARBON DIOXIDE,CO2 28.8 mmol/L (21.0-32.0); CREATININE 1.88 mg/dL (0.55-1.02); EST CRCL DRUG DOSING (CG) 21.97 mL/min; MAGNESIUM 1.8 mg/dL (1.8-2.4)
[2024-05-13] MEDS ORDERED: Acetaminophen/HYDROcodone 325-5 MG Tab PO PRN (09:21)
[2024-05-13 11:41] VITALS: BP 122/66; PULSE 62
== END 2024-05-13 11:45 ==
LOC: LB.ED 20:24 → LB.MS 21:39
PROVIDERS: ADMIT Surgery; ATTEND Surgery
DX: S32.502A Unspecified fracture of left pubis, initial encounter for closed fracture (principal); K21.9 Gastro-esophageal reflux disease without esophagitis; I10 Essential (primary) hypertension; F32.A Depression, unspecified; F41.9 Anxiety disorder, unspecified; Z79.899 Other long term (current) drug therapy; Z88.5 Allergy status to narcotic agent; Z88.8 Allergy status to other drugs, medicaments and biological substances; W18.30XA Fall on same level, unspecified, initial encounter
CPT/HCPCS: 36415; 72192; 73502-LT; 80048; 81003; 83735; 85027; 96374; 99285-25; A9270-GY; J1630; J2060; J3010; J3490; Q0162

== ENCOUNTER 2024-05-16 00:20 | Emergency (ER) | payer MEDICARE ==
[2024-05-16 01:39] LABS: HEMATOCRIT 25.9 % (37.0-47.0); HEMOGLOBIN 8.4 g/dL (11.5-16.5); MEAN CORPUSCULAR HEMOGLOBIN 28.9 pg (27.0-32.0); MEAN CORPUSCULAR HGB CONC 32.4 g/dL (31.0-35.0); MEAN PLATELET VOLUME 8.7 fL (6.0-10.0); RED BLOOD CELL COUNT 2.91 M/uL (3.80-5.80); RED CELL DISTRIBUTION WIDTH 13.7 % (11.0-16.0); WHITE BLOOD CELL COUNT,WBC 5.3 K/uL (4.0-11.0)
[2024-05-16 01:41] LABS: APPEARANCE,URINE CLEAR (CLEAR); BILIRUBIN,URINE NEGATIVE (NEGATIVE); COLOR,URINE YELLOW; GLUCOSE,URINE NEGATIVE (NEGATIVE); KETONES,URINE NEGATIVE (NEGATIVE); LEUKOCYTE ESTERASE,URINE NEGATIVE (NEGATIVE); NITRITE,URINE NEGATIVE (NEGATIVE); OCCULT BLOOD,URINE NEGATIVE (NEGATIVE); PROTEIN,URINE 30 mg/dL (NEGATIVE); UROBILINOGEN,URINE 0.2 E.U./dL (0.2-1.0)
[2024-05-16 01:48] LABS: RBC,URINE 0-5 /HPF; WBC,URINE NOT SEEN /HPF
[2024-05-16 02:03] LABS: A/G RATIO 0.7 (0.8-2.0); ALBUMIN 2.8 g/dL (3.4-5.0); ANION GAP 14.9 mmol/L (5.0-15.0); BILIRUBIN TOTAL 0.5 mg/dL (0.0-1.0); CALCIUM 8.6 mg/dL (8.5-10.1); CARBON DIOXIDE,CO2 25.6 mmol/L (21.0-32.0); CREATININE 2.25 mg/dL (0.55-1.02); EST CRCL DRUG DOSING (CG) 18.36 mL/min; POTASSIUM,K 3.5 mmol/L (3.5-5.1)
[2024-05-16 02:08] LABS: BUN/CREATININE RATIO 23.6 (6-25)
[2024-05-16] MEDS: Sodium Chloride 0.9% 1,000 ML IV SCH (03:10)
[2024-05-16] MEDS: Albuterol 0.083% 2.5 MG/3 ML Neb Soln NEB ONE (03:59)
[2024-05-16 04:25] LABS: INFLUENZA A NAA POSITIVE (NEGATIVE); INFLUENZA B NAA NEGATIVE (NEGATIVE); RESPIRATORY SYNCYTIAL VIR NAA NEGATIVE (NEGATIVE)
[2024-05-16 04:28] LABS: CORONAVIRUS COVID-19 NAA NEGATIVE (NEGATIVE)
[2024-05-16] MEDS: Oseltamivir 75 MG Cap PO ONE (05:28)
[2024-05-16] MEDS: fentaNYL 25 MCG/HR Transdermal Patch TRDERM SCH (08:58)
[2024-05-16] MEDS: Oseltamivir 75 MG Cap ONE (09:42)
[2024-05-16 09:52] VITALS: BP 151/80; PULSE 113
== END 2024-05-16 09:20 ==
LOC: LB.ED 00:20
DX: J10.1 Influenza due to other identified influenza virus with other respiratory manifestations (principal); D50.8 Other iron deficiency anemias; I10 Essential (primary) hypertension; K21.9 Gastro-esophageal reflux disease without esophagitis; Z79.899 Other long term (current) drug therapy; Z79.01 Long term (current) use of anticoagulants; Z79.1 Long term (current) use of non-steroidal anti-inflammatories (NSAID); Z79.2 Long term (current) use of antibiotics; Z88.6 Allergy status to analgesic agent; Z88.5 Allergy status to narcotic agent; Z88.8 Allergy status to other drugs, medicaments and biological substances
CPT/HCPCS: 0241U; 36415; 80053; 81001; 85027; 87651-QW; 96360; 96361; 99284; 99285-25; A9270-GY; C1758; J7030